=== PATIENT | male | born 1955 | race Hispanic/Latino ===

== ENCOUNTER 2021-08-07 16:09 | Emergency (ER) | payer MEDICAID, SELFPAY ==
--- NOTE | ~2021-08-07 | CT_ITS ---
EXAMINATION: CT abdomen pelvis wo con DATE: 08/07/2021 17:04 INDICATION: Right flank pain TECHNIQUE: Computed tomography (CT) of the abdomen and pelvis was performed without intravenous contr ast. Automated exposure control and iterative reconstruction technique were employed. Exam dose: 108 6.64 mGy-cm total exam DLP. COMPARISON: None. FINDINGS: The lung bases are clear of consolidation. Normal heart size. No pericardial or pleural eff usion. Moderately prominent sliding hiatal hernia. The liver, gallbladder, bile duct, spleen, pancreas and pancreatic duct are unremarkable. Normal morphology of the adrenal glands. No renal mass lesion or urinary tract calculus or hydroureteronephrosis. Urinary bladder is evacuated . Mild prostate calcification. Normal caliber of the abdominal aorta. No intraperitoneal or retroperitoneal or pelvic mass lesion or adenopathy or ascites is evident. Diverticulosis of left and right colon; no CT evidence of diverticulitis. No bowel obstruction, bowel wall thickening, pneumatosis or intraperitoneal free air is evident. Fat-containing umbilical hernia. Fat-containing right inguinal hernia. Included skeletal structures are unremarkable other than degenerative changes of the thoracic and lum bar spine. IMPRESSION: No urinary tract calculus or hydroureteronephrosis Moderately large sliding hiatal hernia Diverticulosis of left and right colon; no CT evidence of diverticulitis No evidence of appendicitis Fat-containing umbilical and right inguinal hernias Reviewed, dictated and finalized at [facility]. Reviewed, dictated and finalized at [facility]. [employer] ADVIS[facility]
[2021-08-07 16:12] VITALS: BP 153/100; PULSE 92; RESP 18; TEMP 36.1; O2SAT 99
[2021-08-07 16:43] VITALS: BP 132/92; RESP 16; TEMP 37.2; O2SAT 96
[2021-08-07 17:59] LABS: Add Urine Microscopic? NO; Appearance Urine Clear (Clear); Bilirubin Urine Negative (Negative); Blood Urine Negative (Negative); Color Urine Yellow (Yellow); Glucose Urine UA Negative (Negative); Ketones Urine Negative (Negative); Leukocyte Esterase Ur Negative LEU/UL (Negative); Nitrate Urine Negative (Negative); Protein Urine Negative (Negative); Specific Grav Ur 1.024 (1.001-1.035); Urobilinogen Urine Negative mg/dL (<2.0)
--- NOTE | 2021-08-07 20:19 | ED.GENADULT ---
HPI - General Adult General Chief complaint: Back Pain/Injury Stated complaint: LOWER BACK PAIN X3D Time Seen by Provider: 08/07/21 16:40 Source: patient Mode of arrival: ambulatory Limitations: no limitations History of Present Illness HPI narrative: Patient is a 66-year-old male with chief complaint of right-sided low back pain over the past 3 days. Patient reports that he has also noticed going to the bathroom more frequently at night. He denies any pain with urination or hematuria. Patient denies any direct trauma or injury to his back. He denies any chest pain, shortness of breath, fever, chills, loss of bowel or bladder bladder function or saddle paresthesias. Patient denies history of kidney stones. Related Data Allergies Allergy/AdvReac Type Severity Reaction Status Date / Time No Known Allergies Allergy Verified 08/07/21 18:20 Review of Systems Review of Systems: CONSTITUTIONAL: Denies fever, chills, or sweats. EYES: Denies visual changes, redness, or discharge. ENT: Denies rhinorrhea, congestion, sore throat, or otalgia. CARDIOVASCULAR: Denies chest pain, palpitations, or edema. RESPIRATORY: Denies cough or dyspnea. GASTROINTESTINAL: Denies abdominal pain, nausea, vomiting, or diarrhea. GENITOURINARY: Reports increased urination at night denies dysuria or hematuria. SKIN: Denies rash or itching. MUSCULOSKELETAL: Reports back pain, denies joint pain, or myalgia. NEUROLOGIC: Denies headache, numbness, dizziness, or weakness. PSYCHIATRIC: Denies anxiety or depression. Exam Narrative: GENERAL: Well-appearing, well-nourished, and in no acute distress. HEAD: Normocephalic, atraumatic. EYES: PERRLA and EOMI. CHEST: Clear to auscultation. No respiratory distress. No wheezes rales or rhonchi HEART: Regular rate and rhythm. No murmur heard. Normal peripheral pulses. BACK: No vertebral point tenderness. Patient reports low back pain worsens with bending and turning. Reports pain with percussion of right lower flank. ABDOMEN: Soft, nontender, nondistended, normal active bowel sounds. EXTREMITIES: Normal range of motion. No edema. SKIN: Warm, dry, no rash. NEURO: No focal deficits. Alert and oriented x3. PSYCH: Normal mood and affect. Course Vital Signs Vital signs: Vital Signs Temperature 97 F L 08/07/21 16:12 Pulse Rate 92 08/07/21 16:12 Respiratory Rate 18 08/07/21 16:12 Blood Pressure 153/100 H 08/07/21 16:12 Pulse Oximetry 99 08/07/21 16:12 Temperature 98.9 F 08/07/21 16:43 Pulse Rate 92 08/07/21 16:12 Respiratory Rate 16 08/07/21 16:43 Blood Pressure 132/92 H 08/07/21 16:43 Pulse Oximetry 96 08/07/21 16:43 Medical Decision Making MDM Narrative Medical decision making narrative: There are no signs of kidney stone or urinary tract infection. There is arthritic changes noted and patient low back so patient symptoms are likely musculoskeletal. Patient may have prostate changes causing increased urination. Patient instructed to follow-up with primary care to discuss the symptoms and to obtain further evaluation. Patient has been prescribed naproxen and cyclobenzaprine. He denies history of falls or any other chronic health conditions. Patient has been instructed to return to emergency department should he develop any emergent symptoms Vital Signs Vital Signs: Vital Signs Temperature 97 F L 08/07/21 16:12 Pulse Rate 92 08/07/21 16:12 Respiratory Rate 18 08/07/21 16:12 Blood Pressure 153/100 H 08/07/21 16:12 Pulse Oximetry 99 08/07/21 16:12 Temperature 98.9 F 08/07/21 16:43 Pulse Rate 92 08/07/21 16:12 Respiratory Rate 16 08/07/21 16:43 Blood Pressure 132/92 H 08/07/21 16:43 Pulse Oximetry 96 08/07/21 16:43 Lab Data Labs: Lab Results 08/07/21 Range/Units 17:30 Urine Color Yellow (Yellow) Urine Appearance Clear (Clear) Urine pH 5.0 (5.0-9.0) Ur Specific [place] 1.024 (1.001-1.035) Urine Protein Negative (Negat
== END 2021-08-07 18:45 | disposition home or self-care (01) ==
PROVIDERS: Physician Assistant; Emergency Provider Emergency Medicine
DX: M47.816 Spondylosis without myelopathy or radiculopathy, lumbar region (principal); K44.9 Diaphragmatic hernia without obstruction or gangrene; K57.90 Diverticulosis of intestine, part unspecified, without perforation or abscess without bleeding; K42.9 Umbilical hernia without obstruction or gangrene; K40.90 Unilateral inguinal hernia, without obstruction or gangrene, not specified as recurrent
CPT/HCPCS: 74176; 81003; 99284

== ENCOUNTER 2021-09-06 13:06 | Outpatient (CLI) | payer MEDICAID, SELFPAY ==
--- NOTE | ~2021-09-06 | US_ITS ---
US axilla RT 09/06/2021 13:55 Indication: Right axillary mass for 3 months. Procedure: High-resolution ultrasound of the right axilla Comparison: No prior studies for comparison. Findings: In the area of palpable concern in the right axilla there is a relatively isoechoic circums cribed mass measuring 3.2 x 4.4 x 2.3 cm. There are internal horizontally oriented striations paralle l to the skin surface. There is marginal vascularity. 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 Recommend follow- up ultrasound in 3 months to assess stability. BI-RADS CATEGORY 3-PROBABLY BENIGN FINDING Reviewed, dictated and finalized at [facility]. [employer]IL[employer]ER Impression: 1: Isoechoic right axillary mass measuring up to 4.4 cm, most likely benign lip karol. Recommend follow-up ultrasound in 3 months to assess stability. BI-RADS CATEGORY 3-PROBABLY BENIGN FINDING
== END 2021-09-06 13:07 | disposition home or self-care (01) ==
PROVIDERS: PCP Physician Assistant; Visit Provider Physician Assistant
DX: R59.0 Localized enlarged lymph nodes (principal)
CPT/HCPCS: 76882

== ENCOUNTER 2021-11-20 16:23 | Outpatient (CLI) | payer MEDICAID, SELFPAY ==
[2021-11-20 17:02] LABS: Estimated Glomerular Filt Rate > 60
== END 2021-11-20 16:24 | disposition home or self-care (01) ==
LOC: ANHLAB 16:27
PROVIDERS: PCP Physician Assistant; Visit Provider Internal Medicine Gastroenterology
DX: R10.84 Generalized abdominal pain (principal)
CPT/HCPCS: 36415; 82565

== ENCOUNTER 2021-12-06 10:00 | Outpatient (RCR) | payer MEDICAID, SELFPAY ==
[2021-11-15 08:00] VITALS: BP_SYST 105
--- NOTE | 2021-11-15 09:27 | PTOPEVAL ---
PHYSICAL THERAPY EVALUATION AND PLAN OF CARE 11-15-21 Thank you for referring Frankie Dimas to [facility] for the diagnosis of R shoulder pain. Frankie is scheduled to be seen for therapy? 2 x/week for 3 weeks. Please review, sign, date and return this plan of care AKANKSHA. I agree with and certify that the following plan of care is medically necessary. Referring Physician Date Attending Provider: ELIZABETH Leblanc Past Medical History Source of Past Medical History Patient,Family/Significant Other Neurological History Hx Neurological Disorders No Significant History Cardiovascular History Hx Cardiac Disorders No Significant History Respiratory History Hx Respiratory Disorders No Significant History Gastrointestinal History Hx Other Gastrointestinal Disorders Yes: hernia repair 2020 Genitourinary History Hx Genitourinary Disorders No Significant History Musculoskeletal History Hx Back Pain Yes: had CT scan -- arthritis of back Hx Orthopedic Surgery Yes: L knee arthroscopy Hx Other Musculoskeletal Disorders Yes: this R shoulder pain Hematological History Hx Hematological Disorders No Significant History Endocrine History Hx Diabetes Yes: pre diabetic-watching diet HEENT History Hx HEENT Disorders No Significant History Evaluation Information Problem Diagnosis R shoulder pain Onset Jun 2021 Subjective Information no trauma or injury to Query Text:As Reported By Patient/ shoulder, gradual increase in Family shoulder pain; no history of shoulder pain; has a lump at armpit, had axillary US- report states benign lipoma; Diagnostic Tests X-Rays For This Problem No MRI For This Problem No Other Tests For This Problem No Previous Treatments Previous Treatments For This Problem no PT for shoulder Prior Level of Function Activity Level (Last 3 Months) Occupation retired Activity of Daily Living Ability Independent Indoor/Home Mobility Independent Community Mobility Independent Stairs Ability Independent Functional Cognition (Planning, Shopping Independent , Taking Medications) Cooking Yes Cleaning Yes Laundry Yes Shopping Yes Driving Yes Home Setting Home Type House Living Situation With Spouse Mobility Assistive Devices (Used Last 3 None Months) Additional Prior Level of Function has sedetary lifestyle; Comments
--- NOTE | 2021-11-28 12:31 | PCPTNOTE ---
Note edit for unit charged with treatment 11/21/2021 at 8:15am. Patient was seen for 58min total of 4units. Manual therapy was utilized for 10min using 1 unit, Neuromuscular re-ed utilized for 18min using 1 unit, Therapeutic exercise utilized for 23min using 2units. This note with reflect units charged for this document.
[2021-12-06 10:00] VITALS: BP_SYST 100
--- NOTE | 2021-12-06 10:52 | PTOPEVAL ---
PHYSICAL THERAPY DISCHARGE 12-06-21 Refer to the clinical summary below, for his status today, compared to the initial evaluation. The goals were not achieved. Discharge PT services. He is to continue with his home exercises and follow up with if any further concerns or needs additional therapy. Thank you for referring Frankie Dimas to [facility].? Please review, sign, date and return this Discharge AKANKSHA. I agree with and certify that the following plan of care is medically necessary. Referring Physician Date Attending Provider: ELIZABETH Leblanc Subjective Information Frankie reports: has not really Query Text:As Reported By Patient/ been using his R arm at home, Family afraid will hurt it again; is doing the exercises at home; wants to stop PT for now and do the exercises at home; Pain Assessment Pain Scale Pain Scale Used Numeric (1 - 10) Self Report Pain Assessment Right Shoulder(s) Reported Pain Level 2 Pain Description Sharp Pain Frequency Chronic,Intermittent Other Pain Description anterior and posterior GH joint Lowest Pain Intensity 0 Greatest Pain Intensity 4 Other Pain Aggravating Factors lie on R shoulder 20 min;reach behind back;wake up in AM with pain shoulder Pain Score Pain Score 2: Self Report Additional Pain Score Comments discussed use of heat PRN at home; Interventions Used Interventions Used By Clinicians Education,Exercise Pain Relief Interventions Used By Inactivity/Rest,Position Patient Change Other Alleviating Interventions is not taking any pain meds or heat at home; Scapular/ Shoulder Range of Motion Right Shoulder Flexion - Active 120 Shoulder Flexion - Passive 135 Shoulder Abduction - Active 85 Shoulder Abduction - Passive 100 Shoulder Medial Rotation - Active palm to R SIJ Query Text:Reach Behind the Back Shoulder Lateral Rotation - Active reach to back of head with Query Text:Reach Behind the Head palm Scapular/Shoulder Range of Motion pain with R shoulder abduction Comments and IR motions, IR most pain increase; B elbow, wrist and finger motions WNL and no pain; L shoulder: flexion 130', abduction 120', IR reach behind back, palm to above waist Gross Upper Extremity Strength Comments R shoulder strength is less than 3/5-- he is not able to activel
== END 2021-12-07 08:10 | disposition home or self-care (01) ==
LOC: ANHPT 10:00
PROVIDERS: PCP Physician Assistant; Visit Provider Physician Assistant
DX: M25.511 Pain in right shoulder (principal)
CPT/HCPCS: 97110; 97112; 97140; 97161